=== PATIENT | male | born 1945 | race Caucasian/White ===

== ENCOUNTER → 2022-09-19 | Outpatient (CLI) | payer SELFPAY ==
[2022-09-19 11:36] LABS: PSA,Total- Diagnostic 5.11 ng/mL (0.0-4.0)
== END | disposition home or self-care (01) ==
PROVIDERS: PCP Family Medicine; Referring Provider Urology; Visit Provider Urology
DX: R97.20 Elevated prostate specific antigen [PSA] (principal)
CPT/HCPCS: 36415; 84153

== ENCOUNTER → 2024-03-23 | Outpatient (CLI) | payer SELFPAY ==
[2024-03-24 14:10] LABS: PSA, Free 1.02 ng/mL
== END | disposition home or self-care (01) ==
LOC: LAB 09:53
PROVIDERS: PCP Family Medicine; Referring Provider Nurse Practitioner; Visit Provider Nurse Practitioner
DX: R97.20 Elevated prostate specific antigen [PSA] (principal)
CPT/HCPCS: 36415; 84153; 84154